=== PATIENT | female | born 2000 | race African-American/Black ===

== ENCOUNTER 2020-01-28 02:11 | Emergency (ER) | payer SELFPAY ==
[~2020-01-28] VITALS: Ht 160 cm; Wt 81.8 kg
[2020-01-28] MEDS ORDERED: NS 1,000 ML IV ONE (03:00)
[2020-01-28 03:21] LABS: HEMOGLOBIN 13.6 g/dl (12.0-15.5); MEAN CORPUSCULAR HEMOGLOBIN 26.2 pg (27.0-33.0); MEAN CORPUSCULAR HGB CONC 31.6 g/dl (32.0-36.5); MEAN CORPUSCULAR VOLUME 82.7 fl (80.0-96.0); PLATELET COUNT, AUTOMATED 300 10^3/uL (150-450)
--- NOTE | 2020-01-28 03:37 | REPVR ---
PROCEDURE INFORMATION: Exam: CT Head Without Contrast Exam date and time: 01/28/2020 3:00 AM Age: 19 years old Clinical indication: Altered mental status/memory loss; Confusion or disorientation TECHNIQUE: Imaging protocol: Computed tomography of the head without contrast. Radiation optimization: All CT scans at this facility use at least one of these dose optimization techniques: automated exposure control; mA and/or kV adjustment per patient size (includes targeted exams where dose is matched to clinical indication); or iterative reconstruction. COMPARISON: No relevant prior studies available. FINDINGS: Brain: Normal. No hemorrhage. Unremarkable white matter. No mass effect. Cerebral ventricles: No ventriculomegaly. Bones/joints: Unremarkable. No acute fracture. Paranasal sinuses: Visualized sinuses are unremarkable. No fluid levels. Mastoid air cells: Visualized mastoid air cells are well aerated. Soft tissues: Unremarkable. IMPRESSION: No acute intracranial abnormality. Electronically signed by: Onesimo Velasquez On 01/28/2020 03:37:36 AM
[2020-01-28 03:54] LABS: ATYPICAL LYMPH 1 % (0-5); EOSINOPHILS 2 % (0-3); LYMPHOCYTES 43 % (16-44); MONOCYTES 7 % (0-5); NEUTROPHILS 46 % (28-66); PLATELET ESTIMATE NORMAL (NORMAL)
[2020-01-28 04:10] LABS: ACETAMINOPHEN LEVEL < 2.0 UG/ML (10.0-30.0); ALBUMIN 3.7 GM/DL (3.2-5.2); ALT/SGPT 26 U/L (12-78); BILIRUBIN,DIRECT < 0.1 MG/DL (0.0-0.2); BILIRUBIN,TOTAL 0.1 MG/DL (0.2-1.0); BLOOD UREA NITROGEN 15 MG/DL (7-18); CALCIUM LEVEL 8.9 MG/DL (8.5-10.1); CARBON DIOXIDE LEVEL 25 MEQ/L (21-32); CHLORIDE LEVEL 109 MEQ/L (98-107); CK-MB VALUE MASS < 1.0 NG/ML (<3.6); CPK CREATINE PHOSPHOKINASE 102 U/L (26-192); CREATININE FOR GFR 0.74 MG/DL (0.55-1.30); ETHYL ALCOHOL (ETHANOL) 0.089 % (0.000-0.010); GLOMERULAR FILTRATION RATE > 60.0 (>60); GLUCOSE, FASTING 91 MG/DL (70-100); MB/CK RELATIVE INDEX 0.98 (< OR =4); SALICYLATE LEVEL 2.2 MG/DL (5.0-30.0); SODIUM LEVEL 142 MEQ/L (136-145); TOTAL PROTEIN 7.6 GM/DL (6.4-8.2); TROPONIN I < 0.02 NG/ML (< 0.10)
--- NOTE | 2020-01-28 07:21 | ECGEPIP ---
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
[2020-01-28 07:40] LABS: AMPHETAMINES LEVEL URINE NEGATIVE (NEGATIVE); BARBITURATES URINE NEGATIVE (NEGATIVE); BENZODIAZEPINES URINE NEGATIVE (NEGATIVE); CANNABINOIDS URINE POSITIVE (NEGATIVE); COCAINE METABOLITE URINE NEGATIVE (NEGATIVE); METHADONE URINE NEGATIVE (NEGATIVE); OPIATES URINE NEGATIVE (NEGATIVE); PHENCYCLIDINE URINE NEGATIVE (NEGATIVE)
[2020-01-28 10:24] VITALS: BP 126/81
== END 2020-01-28 10:25 | disposition home or self-care (01) ==
LOC: M ED 02:11
DX: R56.9 Unspecified convulsions (principal)
CPT/HCPCS: 70450; 80048; 80076; 80307; 81001; 82550; 82553; 83605; 84443; 84484; 84702; 85025; 93005; 93041; 94760; 96360; 96361; 99285; G0480

== ENCOUNTER 2020-12-09 20:50 | Inpatient (IN) | payer OTHER, SELFPAY ==
[2020-12-09] MEDS ORDERED: LACTATED RINGER'S 1000 ML IV STA (21:04)
[2020-12-09] MEDS ORDERED: PENICILLIN G POTASSIUM IV 5 MU in D5W MINI-BAG PLUS 100 ML IV STA (21:04)
[2020-12-09] MEDS ORDERED: CARBOPROST TROMETHAMINE 250 MCG/ML AMP IM PRN (21:05)
[2020-12-09] MEDS ORDERED: LIDOCAINE 1% MDV 20ML VIAL INFIL PRN (21:05)
[2020-12-09] MEDS ORDERED: TRANEXAMIC ACID INJection 1,000 MG in NS 100 ML IV PRN (21:05)
[2020-12-09] MEDS ORDERED: METHYLERGONOVINE MALEATE 0.2 MG/ML VIAL (J2210) IM PRN (21:05)
[2020-12-09] MEDS ORDERED: LR 1,000 ML IV SCH (21:05)
[2020-12-09] MEDS ORDERED: OXYTOCIN 30 UNITS IN 0.9% NaCl 500ML IV BAG (J2590) As Ordered ONE (21:18)
[2020-12-09 21:42] LABS: HEMATOCRIT 32.9 % (36.0-47.0); HEMOGLOBIN 10.6 g/dl (12.0-15.5); MEAN CORPUSCULAR HEMOGLOBIN 25.9 pg (27.0-33.0); MEAN CORPUSCULAR HGB CONC 32.2 g/dl (32.0-36.5); MEAN CORPUSCULAR VOLUME 80.2 fl (80.0-96.0); PLATELET COUNT, AUTOMATED 259 10^3/uL (150-450); WHITE BLOOD COUNT 12.3 10^3/uL (4.0-10.0)
[2020-12-09] MEDS ORDERED: FENTANYL 2MCG/ML ROPIVACAINE 0.2% IN 0.9% NACL 100ML IVBAG As Ordered ONE (21:51)
[2020-12-09 22:02] LABS: ALT/SGPT 17 U/L (12-78); BILIRUBIN,TOTAL 0.2 MG/DL (0.2-1.0); CREATININE FOR GFR 0.58 MG/DL (0.55-1.30); GLOMERULAR FILTRATION RATE > 60.0 (>60); LDH LACTATE DEHYDROGENASE 152 U/L (84-246); URIC ACID 5.2 MG/DL (2.6-6.0)
[2020-12-10] MEDS ORDERED: MEASLES,MUMPS,RUBELLA VACCINE INJ (MMR-II) (90707) SC SCH (00:15)
[2020-12-10] MEDS ORDERED: IBUPROFEN 600MG TAB PO PRN (00:15)
[2020-12-10] MEDS ORDERED: ACETAMINOPHEN TAB 650MG DOSE (2X325MG) PO PRN (00:15)
[2020-12-10] MEDS ORDERED: DOCUSATE SODIUM 100MG CAPSULE PO PRN (00:15)
[2020-12-10] MEDS ORDERED: OXYTOCIN DRIP 30 UNITS in IV 1 EA IV SCH (00:15)
[2020-12-10] MEDS ORDERED: RHOGAM 300 MCG (1500 IU) INJ (J2790) IM SCH (00:15)
[2020-12-10] MEDS ORDERED: DIBUCAINE 1% OINTMENT 30GM TOP PRN (00:15)
[2020-12-10] MEDS ORDERED: ONDANSETRON 4MG/2ML VIAL IV PRN ×2 (00:15→01:50)
[2020-12-10 00:21] VITALS: BP 116/71
[2020-12-10 00:32] VITALS: BP 110/55
[2020-12-10 00:45] VITALS: BP 114/65
[2020-12-10] MEDS ORDERED: FENTANYL/ROPIVACAINE/NACL BAG 100 ML EPIDURAL SCH (01:50)
[2020-12-10] MEDS ORDERED: EPIDURAL/PCA KEYS XX PRN (01:50)
[2020-12-10] MEDS ORDERED: LACTATED RINGER'S 1000 ML IV PRN (01:50)
[2020-12-10] MEDS ORDERED: REFRIGERATOR IV KEYS XX PRN (01:50)
[2020-12-10] MEDS ORDERED: EPIDURAL COMMENT XX SCH (01:50)
[2020-12-10] MEDS ORDERED: ePHEDrine SULFATE 25 MG/5 ML(5MG/ML) SYRINGE IV PRN (01:50)
[2020-12-10] MEDS ORDERED: NALOXONE INJ 0.4MG/1ML VIAL (J2310 PER 1MG) IV PRN (01:50)
[2020-12-10] MEDS ORDERED: diphenhydrAMINE 50MG/ML VIAL (J1200) IV PRN (01:50)
[2020-12-10] MEDS ORDERED: PENICILLIN G POTASSIUM IV 2.5 MU in IV 1 EA IV SCH (02:00)
[2020-12-10] MEDS: ACETAMINOPHEN 500 MG TAB PO PRN ×4 (02:22→21:00)
[2020-12-10 02:40] VITALS: BP 134/71
[2020-12-10] MEDS: IBUPROFEN 800 MG TAB PO PRN ×3 (03:09→19:25)
[2020-12-10] MEDS ORDERED: PROMETHAZINE INJ 25 MG/ML VIAL (J2550) IV ONE (04:00)
[2020-12-10 06:00] VITALS: BP 133/78
[2020-12-10] MEDS: PRENATAL VITAMINS CHEWABLE TABLET PO SCH (08:55)
[2020-12-10] MEDS: PERCOCET 5MG/325MG TAB PO PRN ×2 (17:02→22:30)
[2020-12-10 18:00] VITALS: BP 152/96
[2020-12-11] MEDS: IBUPROFEN 800 MG TAB PO PRN ×2 (05:55→15:37)
[2020-12-11 06:00] VITALS: BP 118/79
[2020-12-11] MEDS: LR 1,000 ML IV SCH ×2 (08:15→16:15)
[2020-12-11] MEDS: PRENATAL VITAMINS CHEWABLE TABLET PO SCH (08:48)
[2020-12-11] MEDS: PERCOCET 5MG/325MG TAB PO PRN ×2 (10:18→17:58)
[2020-12-11] MEDS: CYCLOBENZAPRINE 10MG TABLET PO PRN ×2 (14:26→22:43)
[2020-12-11 18:00] VITALS: BP 142/62
[2020-12-12] MEDS: PERCOCET 5MG/325MG TAB PO PRN ×2 (00:25→11:13)
[2020-12-12] MEDS: IBUPROFEN 800 MG TAB PO PRN ×2 (03:46→18:38)
[2020-12-12 06:00] VITALS: BP 119/72
[2020-12-12] MEDS: CYCLOBENZAPRINE 10MG TABLET PO PRN (06:30)
[2020-12-12] MEDS: PRENATAL VITAMINS CHEWABLE TABLET PO SCH (10:45)
[2020-12-12] MEDS ORDERED: CYCL-707 PO (12:16)
[2020-12-12 17:50] VITALS: BP 137/78
== END 2020-12-12 18:00 | disposition home or self-care (01) | DRG 560 ==
LOC: M LDI 20:50 → M OBS 12-10 02:09
PROVIDERS: ADMIT Obstetrics & Gynecology; ATTEND Obstetrics & Gynecology
PROC: 10907ZC Drainage of Amniotic Fluid, Therapeutic from Products of Conception, Via Natural or Artificial Opening (ICD-10-PCS; 2020-12-09)
PROC: 10E0XZZ Delivery of Products of Conception, External Approach (ICD-10-PCS; principal; 2020-12-10)
PROC: 0KQM0ZZ Repair Perineum Muscle, Open Approach (ICD-10-PCS; 2020-12-10)
DX: O99.824 Streptococcus B carrier state complicating childbirth (principal); Z37.0 Single live birth; Z3A.38 38 weeks gestation of pregnancy; O70.1 Second degree perineal laceration during delivery

== ENCOUNTER 2021-07-30 15:44 | Inpatient (IN) | payer MEDICAID, OTHER ==
[~2021-07-30] VITALS: Ht 165.1 cm; Wt 80.0 kg
[~2021-07-30 15:44] MED LIST: CYCL-707 PO
[2021-07-30 16:32] LABS: HEMATOCRIT 39.5 % (36.0-47.0); MEAN CORPUSCULAR HEMOGLOBIN 28.1 pg (27.0-33.0); MEAN CORPUSCULAR HGB CONC 32.9 g/dl (32.0-36.5); MEAN CORPUSCULAR VOLUME 85.3 fl (80.0-96.0); PLATELET COUNT, AUTOMATED 288 10^3/uL (150-450); RED BLOOD COUNT 4.63 10^6/uL (4.00-5.40); WHITE BLOOD COUNT 12.2 10^3/uL (4.0-10.0)
[2021-07-30 17:05] LABS: ACETAMINOPHEN LEVEL 2.6 UG/ML (10.0-30.0); ALBUMIN 3.7 GM/DL (3.2-5.2); ALT/SGPT 25 U/L (12-78); BILIRUBIN,DIRECT 0.1 MG/DL (0.0-0.2); BILIRUBIN,TOTAL 0.3 MG/DL (0.2-1.0); BLOOD UREA NITROGEN 9 MG/DL (7-18); CALCIUM LEVEL 9.4 MG/DL (8.5-10.1); CARBON DIOXIDE LEVEL 26 MEQ/L (21-32); CHLORIDE LEVEL 110 MEQ/L (98-107); ETHYL ALCOHOL (ETHANOL) < 0.003 % (0.000-0.010); GLOMERULAR FILTRATION RATE > 60.0 (>60); GLUCOSE, FASTING 81 MG/DL (70-100); POTASSIUM SERUM 4.2 MEQ/L (3.5-5.1); SALICYLATE LEVEL 3.9 MG/DL (5.0-30.0); SODIUM LEVEL 141 MEQ/L (136-145); TOTAL PROTEIN 6.7 GM/DL (6.4-8.2)
[2021-07-30 17:09] LABS: AMPHETAMINES LEVEL URINE NEGATIVE (NEGATIVE); BARBITURATES URINE NEGATIVE (NEGATIVE); BENZODIAZEPINES URINE NEGATIVE (NEGATIVE); CANNABINOIDS URINE POSITIVE (NEGATIVE); COCAINE METABOLITE URINE NEGATIVE (NEGATIVE); METHADONE URINE NEGATIVE (NEGATIVE); OPIATES URINE NEGATIVE (NEGATIVE); PHENCYCLIDINE URINE NEGATIVE (NEGATIVE)
[2021-07-30] MEDS ORDERED: IBUP80TA PO (19:41)
[2021-07-30] MEDS ORDERED: HOME MED LIST COMPLETE! XX SCH (19:45)
[2021-07-30] MEDS ORDERED: MOM 30ML SUSPENSION UDC PO PRN (20:40)
[2021-07-30] MEDS ORDERED: MAALOX 30 ML SUSP *UDC PO PRN (20:40)
[2021-07-30 20:52] LABS: RSV AMPLIFICATION NEGATIVE (NEGATIVE)
[2021-07-30 21:51] VITALS: BP 161/99
[2021-07-30] MEDS: traZODone 50 MG TAB PO PRN (22:03)
[2021-07-31] MEDS: LORazepam 1 MG TAB PO PRN ×2 (06:23→12:39)
[2021-07-31 06:33] VITALS: BP 148/78
[2021-07-31 08:55] VITALS: BP 148/78
[2021-07-31] MEDS ORDERED: DOCUSATE SODIUM 100MG CAPSULE PO PRN (09:30)
[2021-07-31] MEDS: ACETAMINOPHEN TAB 650MG DOSE (2X325MG) PO PRN (12:40)
[2021-07-31 16:19] VITALS: BP 138/80
[2021-07-31] MEDS ORDERED: hydrOXYzine 10 MG TAB PO PRN (18:10)
[2021-07-31] MEDS ORDERED: FLUoxetine 10 MG CAP PO ONE (18:30)
[2021-07-31] MEDS: ONDANSETRON 4MG TAB PO PRN (18:43)
[2021-07-31] MEDS: IBUPROFEN 800 MG TAB PO PRN (18:44)
[2021-07-31] MEDS: traZODone 50 MG TAB PO PRN (20:26)
[2021-08-01] MEDS: IBUPROFEN 800 MG TAB PO PRN (02:56)
[2021-08-01] MEDS: ONDANSETRON 4MG TAB PO PRN (02:56)
[2021-08-01 07:01] VITALS: BP 133/82
[2021-08-01] MEDS ORDERED: FLUoxetine 10 MG CAP PO SCH (09:00)
[2021-08-01] MEDS ORDERED: FLUO10CA18 PO (12:28)
[2021-08-01] MEDS: ACETAMINOPHEN TAB 650MG DOSE (2X325MG) PO PRN (12:41)
== END 2021-08-01 14:45 | disposition home or self-care (01) | DRG 751 ==
LOC: M ED 15:44 → M ED INP 20:38 → M PSY 21:35
PROVIDERS: ADMIT Psychiatry & Neurology Psychiatry; ATTEND Psychiatry & Neurology Psychiatry
DX: F32.2 Major depressive disorder, single episode, severe without psychotic features (principal); R45.851 Suicidal ideations; F17.210 Nicotine dependence, cigarettes, uncomplicated; K59.00 Constipation, unspecified; Z20.822 Contact with and (suspected) exposure to COVID-19; F41.8 Other specified anxiety disorders; Z63.8 Other specified problems related to primary support group

== ENCOUNTER 2021-09-29 09:39 | Emergency (ER) | payer MEDICAID ==
[~2021-09-29] VITALS: Ht 162.6 cm; Wt 75.0 kg
[~2021-09-29 09:39] MED LIST changes: +FLUO10CA18 PO; +IBUP80TA PO
[2021-09-29 10:36] LABS: BASO # 0.1 10^3/uL (0.0-0.2); BASO % 0.8 % (0.0-1.0); EOS # 0.2 10^3/uL (0.0-0.5); EOS % 1.7 % (0.0-3.0); HEMATOCRIT 42.4 % (36.0-47.0); HEMOGLOBIN 13.6 g/dl (12.0-15.5); LYMPH # 2.9 10^3/uL (1.5-5.0); LYMPH % 31.5 % (24.0-44.0); MEAN CORPUSCULAR HEMOGLOBIN 26.8 pg (27.0-33.0); MEAN CORPUSCULAR HGB CONC 32.1 g/dl (32.0-36.5); MEAN CORPUSCULAR VOLUME 83.6 fl (80.0-96.0); MONO # 0.7 10^3/uL (0.0-0.8); MONO % 7.8 % (2.0-8.0); NEUTROPHILS # 5.3 10^3/uL (1.5-8.5); NEUTROPHILS % 57.9 % (36.0-66.0); PLATELET COUNT, AUTOMATED 283 10^3/uL (150-450); RED BLOOD COUNT 5.07 10^6/uL (4.00-5.40); WHITE BLOOD COUNT 9.2 10^3/uL (4.0-10.0)
[2021-09-29 10:59] LABS: ALBUMIN 3.4 GM/DL (3.2-5.2); ALT/SGPT 23 U/L (12-78); BILIRUBIN,DIRECT 0.1 MG/DL (0.0-0.2); BILIRUBIN,TOTAL 0.5 MG/DL (0.2-1.0); BLOOD UREA NITROGEN 14 MG/DL (7-18); CALCIUM LEVEL 8.8 MG/DL (8.5-10.1); CARBON DIOXIDE LEVEL 23 MEQ/L (21-32); CHLORIDE LEVEL 110 MEQ/L (98-107); CREATININE FOR GFR 0.73 MG/DL (0.55-1.30); GLOMERULAR FILTRATION RATE > 60.0 (>60); GLUCOSE, FASTING 81 MG/DL (70-100); LIPASE 54 U/L (73-393); POTASSIUM SERUM 4.2 MEQ/L (3.5-5.1); SODIUM LEVEL 140 MEQ/L (136-145); TOTAL PROTEIN 6.9 GM/DL (6.4-8.2)
[2021-09-29 12:50] VITALS: BP 119/83
== END 2021-09-29 13:17 | disposition home or self-care (01) ==
LOC: M ED 09:39
DX: R10.9 Unspecified abdominal pain (principal); F32.A Depression, unspecified